=== PATIENT | female | born 1985 | race African-American/Black ===

== ENCOUNTER 2020-08-09 04:19 | Emergency (ER) | payer OTHER ==
[2020-08-09 05:04] LABS: #Eosinphils 0.1 10x3/uL (0.0-0.5); #Monocytes 0.6 10x3/uL (0.0-1.1); #Neutrophils 3.4 10x3/uL (1.5-8.4); %Basophils 0.6 % (0.0-2.0); %Eosinophils 1.9 % (0.0-6.0); %Lymphocytes 36.9 % (18.0-47.0); %Monocytes 9.3 % (0.0-10.0); %Neutrophils 51.2 % (40.0-75.0); Hemoglobin 11.7 g/dL (12.0-15.5); Mean Corpuscular HGB CONC 30.2 g/dL (32.0-36.0); Mean Corpuscular Hemoglobin 23.6 pg (27.0-33.0); Mean Corpuscular Volume 78.4 fl (81.6-98.3); Mean Platelet Volume 12.6 fl (7.4-10.4); Red Blood Cell (RBC) Count 4.95 10x6/uL (3.90-5.03); White Blood Cell (WBC) Count 6.7 10x3/uL (3.5-10.5)
[2020-08-09 05:07] LABS: Platelet Count 191 10x3/uL (150-450)
[2020-08-09 05:08] LABS: BHCG - Serum Negative (NEGATIVE); Pregs Control Background? CLEAR/WHITE (CLR/WHITE); Pregs Control Bar Appear? YES (CONTROL BAR)
[2020-08-09] MEDS ORDERED: Mag-Al Plus 1200 MG/1200 MG/120 MG/30 ML UDCUP ONE (05:16)
[2020-08-09] MEDS ORDERED: Lidocaine Viscous Sol 2% 15 ml UD Cup ONE (05:16)
[2020-08-09 05:17] LABS: ALT (SGPT) 14 U/L (8-55); AST (SGOT) 15 U/L (5-34); Albumin 4.1 g/dL (3.5-5.0); Alkaline Phosphatase 61 U/L (40-110); Anion Gap 13 mmol/L (10-20); BUN (Urea Nitrogen) 9 mg/dL (7.0-18.7); Bilirubin, Total 0.3 mg/dL (0.2-1.2); Calc. Creatinine Clearance 0 mL/min (70-130); Carbon Dioxide 25 mmol/L (22-29); Chloride 103 mmol/L (98-107); Globulin 4.2 g/dL (2.4-3.5); Glucose 88 mg/dL (70-105); Lipase 50 U/L (8-78); Potassium 3.6 mmol/L (3.5-5.1); Protein, Total 8.3 g/dL (6.0-8.3); Sodium 137 mmol/L (136-145)
== END 2020-08-09 06:13 | disposition home or self-care (01) ==
LOC: CSHERS 04:19
DX: R07.9 Chest pain, unspecified (principal)
CPT/HCPCS: 71045; 76705; 80053; 83690; 84484; 84703; 85025; 93005

== ENCOUNTER 2022-12-06 12:40 | Day surgery (SDC) | payer OTHER ==
[2022-12-05 15:16] VITALS: BMI 29.5
[2022-12-06] MEDS ORDERED: metroNIDAZOLE 500 MG/100 ML BAG ONE (14:13)
[2022-12-06] MEDS ORDERED: Oxytocin 10 UNITS/ML VIAL ONE (14:20)
[2022-12-06] MEDS ORDERED: fentaNYL 50 mcg/mL 1 mL Vial ONE (14:22)
[2022-12-06] MEDS ORDERED: Midazolam HCl 2 mg/2 ml Vial ONE (14:22)
[2022-12-06] MEDS ORDERED: Ondansetron PF 4 MG/2 ML Vial ONE (14:22)
[2022-12-06] MEDS ORDERED: Dexamethasone 20 MG/5 ML VIAL ONE (14:22)
[2022-12-06] MEDS ORDERED: PROPOFOL 20 ML ONE (14:22)
[2022-12-06] MEDS ORDERED: Ketorolac Tromethamine 30 MG/ML VIAL ONE (14:23)
[2022-12-06] MEDS ORDERED: CEFAZOLIN 2 GM VIAL ONE (14:24)
[2022-12-06 14:31] LABS: Anion Gap 13 mmol/L (10-20); BUN (Urea Nitrogen) 7 mg/dL (7.0-18.7); Calc. Creatinine Clearance 129 mL/min (70-130); Calcium 9.1 mg/dL (7.8-10.44); Carbon Dioxide 23 mmol/L (22-29); Chloride 106 mmol/L (98-107); Estimated GFR 100; Glucose 80 mg/dL (70-105); Potassium 3.9 mmol/L (3.5-5.1); Sodium 138 mmol/L (136-145)
[2022-12-06 14:33] LABS: #Eosinphils 0.1 10x3/uL (0.0-0.5); #Monocytes 0.4 10x3/uL (0.0-1.1); #Neutrophils 2.4 10x3/uL (1.5-8.4); %Basophils 0.9 % (0.0-2.0); %Eosinophils 1.6 % (0.0-6.0); %Lymphocytes 34.9 % (18.0-47.0); %Monocytes 9.1 % (0.0-10.0); %Neutrophils 53.3 % (40.0-75.0); Hematocrit 32.1 % (34.9-44.5); Hemoglobin 8.7 g/dL (12.0-15.5); Mean Corpuscular HGB CONC 27.1 g/dL (32.0-36.0); Mean Corpuscular Hemoglobin 18.4 pg (27.0-33.0); Platelet Count 247 10x3/uL (150-450); RBC Distribution Width 20.9 % (11.5-14.5); Red Blood Cell (RBC) Count 4.72 10x6/uL (3.90-5.03); White Blood Cell (WBC) Count 4.4 10x3/uL (3.5-10.5)
[2022-12-06] MEDS ORDERED: PHENYLEPHRINE-NS 100 MCG/ML 10 ML SYRINGE ONE (15:13)
[2022-12-06 15:20] LABS: Microcytosis SLIGHT = 6-15 cells (100X) (0-5/hpf)
[2022-12-06] MEDS ORDERED: ePHEDrine Sulfate 50 MG/10 ML VIAL ONE (15:20)
[2022-12-06 15:21] LABS: Hypochromia SLIGHT = 6-15 cells (100X) (0-5/hpf); Macrocytosis SLIGHT = 6-15 cells (100X) (0-5/hpf); Ovalocytes SLIGHT = 2-5 cells (100X) (0-1/hpf); Tear Drops SLIGHT = 2-5 cells (100X) (0-1/hpf)
[2022-12-06 15:24] LABS: Anisocytosis SLIGHT = 6-15 cells (100X) (0-5/hpf)
[2022-12-06 15:30] LABS: Large Platelets SLIGHT (None Seen); Platelet Adequacy Comment Appears Adequate
[2022-12-06] MEDS ORDERED: HYDROcodone/Acetaminophen 5/325 mg Tablet ONE (16:26)
== END 2022-12-06 17:20 | disposition home or self-care (01) ==
LOC: CSHSDC 12:40
PROVIDERS: ATTEND Obstetrics & Gynecology
PROC: 0UDB7ZZ Extraction of Endometrium, Via Natural or Artificial Opening (ICD-10-PCS; principal; 2022-12-06)
DX: N88.2 Stricture and stenosis of cervix uteri (principal); D50.9 Iron deficiency anemia, unspecified; N94.6 Dysmenorrhea, unspecified; Z91.040 Latex allergy status
CPT/HCPCS: 80048; 85025; 86850; 86900; 86901; J1100; J1885; J2250; J2405; J2590; J2704; J3010